=== PATIENT | female | born 1950 | race Caucasian/White ===

== ENCOUNTER 2016-08-15 08:12 | Emergency (ER) | payer MEDICARE, OTHER ==
[~2016-08-15] VITALS: Ht 165.1 cm; Wt 58.0 kg
[2016-08-15] MEDS ORDERED: OMEP-110 PO (08:33)
[2016-08-15] MEDS ORDERED: DOXY20TA5 PO (08:33)
[2016-08-15] MEDS ORDERED: IMAT100T PO (08:37)
[2016-08-15] MEDS ORDERED: SODIUM CHLORIDE FLUSH 10ML SYR IVF ONE (09:00)
[2016-08-15] MEDS ORDERED: ONDANSETRON 2MG/ML, 2ML IVPush ONE (09:00)
[2016-08-15] MEDS ORDERED: SODIUM CHLORIDE 0.9% 1,000ML IVBOLUS ONE ×2 (09:00→11:30)
[2016-08-15 09:12] LABS: BLOOD UREA NITROGEN 16 mg/dL (7-18)
[2016-08-15] MEDS ORDERED: ONDANSETRON 2MG/ML, 2ML ONE (09:18)
[2016-08-15 10:53] LABS: PATH.CAST-FLAG NOT PRESENT; SPERM-FLAG NOT PRESENT; SRC-FLAG NOT PRESENT; XTAL-FLAG NOT PRESENT; YLC-FLAG NOT PRESENT
[2016-08-15] MEDS ORDERED: DIAZEPAM 5 MG TABLET ONE (11:54)
[2016-08-15] MEDS ORDERED: DIAZEPAM 5 MG TABLET PO ONE (11:55)
[2016-08-15 12:15] VITALS: BP 168/78
== END 2016-08-15 12:53 | disposition home or self-care (01) ==
LOC: ED 08:55
DX: Y84.4 Aspiration of fluid as the cause of abnormal reaction of the patient, or of later complication, without mention of misadventure at the time of the procedure (principal)
CPT/HCPCS: 36415; 80048; 81001; 82040; 85025; 96361; 96374; 99284; J2405; J7030

== ENCOUNTER → 2019-10-14 | Outpatient (CLI) | payer MEDICARE ==
[~2019-10-14] MED LIST: DOXY20TA5 PO; IMAT100T PO; OMEP-110 PO
== END | disposition home or self-care (01) ==
LOC: CFH 13:01
PROVIDERS: ATTEND Nurse Practitioner
DX: Z12.2 Encounter for screening for malignant neoplasm of respiratory organs (principal); F17.210 Nicotine dependence, cigarettes, uncomplicated; I25.10 Atherosclerotic heart disease of native coronary artery without angina pectoris; J84.10 Pulmonary fibrosis, unspecified
CPT/HCPCS: G0297

== ENCOUNTER 2020-11-02 08:04 | Outpatient (CLI) | payer MEDICARE | END 2020-11-02 23:59 | disposition home or self-care (01) | LOC: CFH 08:04 | PROVIDERS: ATTEND Nurse Practitioner | DX: Z12.2 Encounter for screening for malignant neoplasm of respiratory organs (principal); Z87.891 Personal history of nicotine dependence | CPT/HCPCS: 71271 ==